=== PATIENT | male | born 1945 | race Caucasian/White ===

== ENCOUNTER → 2017-12-12 11:24 | Outpatient (CLI) | payer MEDICARE, BC, SELFPAY ==
--- NOTE | 2017-12-12 | DI.RAD.S_ITS ---
PROCEDURE: FL BARIUM SWALLOW W SPEECH INDICATIONS: DYSPHAGIA TECHNIQUE: Examination was conducted in conjunction with speech pathology per standard protocol. In the lateral projection, filming was performed of the patient swallowing. AP projection filming may also be performed with patient swallowing. COMPARISON: None. FINDINGS: Function: The oral preparatory phase appears normal, with proper containment. The subsequent oral propulsive phase, pharyngeal phase, and esophageal phase of swallowing also appear normal with all proffered substances except with thin liquids where overflow penetration from the puriform sinuses foreign into the glottic region was observed. No laryngotracheal penetration or aspiration. No pathologic vallecular pooling. Morphology: No cricopharyngeal bar is identified. No cervical esophageal webs. No Zenker's diverticulum. No strictures. IMPRESSION: Episodic overflow penetration anteriorly from the piriform sinuses into the glottic area was observed with thin liquids only, but without associated aspiration. Please also refer to the dedicated speech therapy report that will be independently generated from this examination. Dictated by: Ferny Hudson M.D. on 12/12/2017 at 13:01 Approved by: Ferny Hudson M.D. on 12/12/2017 at 13:03
--- NOTE | 2017-12-12 13:15 | ST.SWALLOW ---
Visit Care Team Role Provider Type Thierry Coyle MD Attending Provider Physician Family Provider Primary Care Provider Specialty: Internal Medicine Address: [address] [place] [address], [id number] Email: Modified Barium Swallow Study REIMBURSEMENT LIAISON Modified Barium Swallow Study Start: 12/12/17 12:09 Freq: Status: Active Protocol: Document 12/12/17 12:09 LWORSLE (Rec: 12/12/17 12:16 [email or web address] [id number]) Modified Barium Swallow Study Total Time Visit Start Time 11:30 Visit Stop Time 11:55 Total Visit Minutes 25 Visit Information Insurance Information Medicare/[place] Referral Referring Physician Dr. Coyle Reason for Referral Dysphagia Setting Setting Outpatient Care Patient Information Identification Type Name Patient History Chad has a long history of cough and throat clearing that worsens with swallowing liquids. His encouraged him to attend a swallow screening performed at the rehab clinic of the hospital, after which it was recommended that he undergo a modified barium swallow. Patient informed his physician, Dr. Coyle, who made the referral. Chad told this speech- language pathologist that it sometimes feels like water is going down the wrong way. He also reported that when he is riging his bike, he will take a drink form the water bottle while riding and frequently ends up choking on the water. Patient Positioning Position View Lateral Imaging Lateral View Textures Administered Trials Presented Thin Liquid via Spoon Thin Liquid via Cup [place] Liquid via Spoon [place] Liquid via Cup Pudding Thick Liquid via Spoon Regular Textures Oral Phase Source: MBSIMP (TM) (C) Bolus Specific Scoring Grid Lip Closure No Impairment (WNL) Tongue Control During Bolus Hold No Impairment (WNL) Bolus Prep/Mastication No Impairment (WNL) Bolus Transport/Lingual Motion No Impairment (WNL) A/P Lingual Propulsion Delay No Oral Residue No Impairment (WNL) Residue Clearing No Impairment (WNL) Nasal Regurgitation No Pharyngeal Phase Source: MBSIMP (TM) (C) Bolus Specific Scoring Grid Delayed Initiation of Pharyngeal Swallow No Soft Palate Elevation No Impairment (WNL) Tongue Base Strength/Range of Motion No Impairment (WNL) Residue Along the Tongue Base Yes Clearance of Residue Along Tongue Base WFL Laryngeal Elevation No Impairment (WNL) Anterior Hyoid Movement No Impairment (WNL) Epiglottic Range of Motion Moderate Impairment Vallecular Residue Yes Clearance of Vallecular Residue Minimal Impairment Laryngeal Vestibular Closure Moderate Impairment Pharyngeal Stripping Wave No Impairment (WNL) Pharyngeal Contraction No Impairment (WNL) Posterior Pharyngeal Wall Residue No Clearance of Posterior Pharyngeal Wall No Impairment (WNL) Residue Upper Esophageal Sphincter Opening No Impairment (WNL) Residue in the Pyriform Sinuses Yes Clearance of Residue in the Pyriform Moderate Impairment Sinuses Pharyngoesophageal Backflow Observed No Additional Pharyngeal Phase Observations The pt presented with pooling in the pharyngeal cavities across all trials. The pyriform sinuses would subsequently spill residue into the laryngeal vestibule resulting in throat-clearing. This was consistently present across all thin liquid trials . Aggressive throat-clearing was effective in clearing the residue from the vocal folds. Additionally there was evidence of barium residue on the superior 2/3 of the anterior wall of the thyroid cartilage A/P View Clinical Impressions Dysphagia Type Mild-Moderate pharyngeal phase dysphagia Findings Chad demonstrated penetration without aspiration with thin liquids. This penetration did not improve with a chin tuck. However, his swallow improved with an effortful swallow. He had some mild vallecular pooling. A moderate amount of residue was left in his pyriform sinuses, which was successfully cleared with throat clearing and an extra swallow. He had incomplete epiglottic closure with thin liquids, but it was improved with thicker substances ( nectar, pudding, and solids), likely due to the weight of the bolus pushing down on his epiglottis. This lack of complete laryngotracheal closure puts Chad at risk for penetration/aspiration of thin liquids. His oral phase was unremarkable and no esophageal dysfunction was observed from the limited view obtained during this study. Outpatient speech therapy is recommended for lingua- pharyngeal strengthening exercises to improve Chad' swallow efficiency and reduce risk for aspiration. Rehabilitation Potential Excellent Patient Appropriate for Therapy Yes Recommendations Diet Liquids Order Thin Diet Order Regular Medication Recommendation As Tolerated Additional Dietary Needs Controlled Sips Reminders to Use Strategies Aspiration Precautions Recommended Precautions Upright at 90 Degrees Effortful Swallow Double Swallow Treatment Plan Therapy Recommendations Outpatient Speech Therapy Base of Tongue Exercises Recommended Referrals Primary Care Physician Compensatory Strategies Recommendations Double Swallow Supraglottic Swallow Please Sign and Return: I have reviewed this Plan of Care and certify that the skilled therapy services above are required to meet the patient???s needs. Physician Signature Date Printed Name and Credentials Clinical Instructor Signature Printed Name and Credentials
== END ==
PROVIDERS: Family Provider Internal Medicine; PCP Internal Medicine; Visit Provider Internal Medicine
DX: R13.10 Dysphagia, unspecified (principal)
CPT/HCPCS: 74230; 92611

== ENCOUNTER → 2018-04-08 13:12 | Outpatient (CLI) | payer MEDICARE, BC, SELFPAY ==
[2018-04-08 15:04] LABS: Prostate Specific Antigen < 0.064 ng/mL (0.10-4.00)
== END ==
PROVIDERS: PCP Internal Medicine; Visit Provider Urology
DX: Z85.46 Personal history of malignant neoplasm of prostate (principal)
CPT/HCPCS: 36415; 84153

== ENCOUNTER 2018-06-17 11:30 | Outpatient (RCR) | payer MEDICARE, BC, SELFPAY ==
--- NOTE | 2018-07-10 16:27 | ST.SWALLOW ---
Care Team Visit Care Team Role Provider Type Thierry Coyle MD Attending Provider Physician Family Provider Primary Care Provider Specialty: Internal Medicine Address: [address] [place] [address], [id number] Email: Modified Barium Swallow Study HOSPITAL WELLNESS COORDINATOR Modified Barium Swallow Study Start: 07/10/18 10:23 Freq: Status: Active Protocol: Document 07/10/18 15:09 ARIANNA (Rec: 07/10/18 16:05 ARIANNA [id number]) Modified Barium Swallow Study Total Time Visit Start Time 09:45 Visit Stop Time 10:15 Total Visit Minutes [address] Sonny Coyle Reason for Referral Follow up assessment after course of dysphagia tx Setting Setting Outpatient Care Patient Information Identification Type Name ID Card Patient History 72-yr-old male who has been participating in dysphagia therapy since December 2017 presents for repeat instrumental evaluation of swallow to determine level of progress and guide POC. The pt underwent MBSS at start of dysphagia treatment (). Per HOSPITAL WELLNESS COORDINATOR report, the MBS results demonstrated penetration into the laryngeal vestibule without aspiration with thin liquids. This penetration did not improve with a chin tuck. However, his swallow improved with an effortful swallow. He had some mild vallecular pooling. A moderate amount of residue was left in his pyriform sinuses, which was successfully cleared with throat clearing and an extra swallow. He had incomplete epiglottic closure with thin liquids, but it was improved with thicker substances (nectar, pudding, and solids), likely due to the weight of the bolus pushing down on his epiglottis. This lack of complete laryngotracheal closure puts Chad at risk for penetration/ aspiration of thin liquids. His oral phase was unremarkable and no esophageal dysfunction was observed from the limited view obtained during this study. Chad had videostroboscopy assessment on 04/02/[address] Ghosh, ENT in [place]. The results indicated right and left vocal folds to be slightly rough as well as mild hypertrophy of the posterior commisure. The pt reports no changes in symptoms since start of treatment; symptoms include chronic cough which increases when in cold weather and occurs frequently with intake of solids and liquids. Subjective Observations The pt arrived on time and provided case history supplemental to medical records. Patient Positioning Position View Lat-A/P Imaging Lateral View Textures Administered Trials Presented Thin Liquid via Spoon Thin Liquid via Cup Thin Liquid via Straw Ashley Liquid via Spoon Ashley Liquid via Cup Honey Liquid via Spoon Dysphagia Blenderized Textures Regular Textures Barium Tablet Oral Phase Source: MBSIMP (TM) (C) Bolus Specific Scoring Grid Lip Closure No Impairment (WNL) Tongue Control During Bolus Hold No Impairment (WNL) Bolus Prep/Mastication No Impairment (WNL) Bolus Transport/Lingual Motion No Impairment (WNL) A/P Lingual Propulsion Delay No Oral Residue Moderate Impairment Residue Clearing WFL Nasal Regurgitation No Additional Oral Phase Observations Delayed swallow trigger observed with liquids in consecutive sips with spillage to pyriform sinuses. Spillage to vallecula noted with solids prior to swallow trigger. Mild-moderate oral residue observed consistently with spillage to vallecula post swallow. Two to three dry swallows were consistently required to clear residue and likely results from inadequate lingal-palatal seal during bolus transport. Pharyngeal Phase Source: MBSIMP (TM) (C) Bolus Specific Scoring Grid Delayed Initiation of Pharyngeal Swallow Yes Soft Palate Elevation No Impairment (WNL) Tongue Base Strength/Range of Motion Minimal Impairment Residue Along the Tongue Base Yes: Spills to pharynx post- swallow. Requires 1-2 dry swallows to clear. Clearance of Residue Along Tongue Base Mild Impairment Laryngeal Elevation No Impairment (WNL) Anterior Hyoid Movement No Impairment (WNL) Epiglottic Range of Motion No Impairment (WNL) Vallecular Residue Yes: Mild; Requires 1-2 dry swallows to clear. Clearance of Vallecular Residue Mild Impairment Laryngeal Vestibular Closure Minimal Impairment Pharyngeal Stripping Wave Mild Impairment Pharyngeal Contraction No Impairment (WNL) Posterior Pharyngeal Wall Residue Yes: Mild; Requires 1-2 dry swallows to clear. Clearance of Posterior Pharyngeal Wall Mild Impairment Residue Upper Esophageal Sphincter Opening No Impairment (WNL) Residue in the Pyriform Sinuses Yes: Moderate; Requires 1-2 dry swallows to clear. Clearance of Residue in the Pyriform Mild Impairment Sinuses Esophageal Clearance Upright Position No Impairment (WNL) Pharyngoesophageal Backflow Observed No Additional Pharyngeal Phase Observations Incomplete closure of laryngeal vestibule resulted in flash penetration (PAS Score 3) with thin and NTLs, improved with chin tuck. No aspiration was observed. Moderate pharyngeal residue present with liquids and solids, most significantly collected in pyriform sinuses. Two to three dry swallows were consistently required for adequate clearance of residue throughout the study. Residue resulting from reduced tongue base retraction and pharyngeal stripping wave. A/P View Textures Administered Trials Presented Ashley Liquid via Cup Barium Tablet A/P View Observations Pharyngeal Contraction No Impairment (WNL) Residue Observed Pyriform Sinus Right Pyriform Sinus Left Esophageal Function No Impairment (WNL) Esophageal Clearance Upright Position No Impairment (WNL) Clinical Impressions Dysphagia Type Mild oropharyngeal dysphagia Findings Pt exhibits improved swallow function as result of dysphagia treatment, specifically improved epiglottic inversion and closure of laryngeal vestibule . The pt continues with flash penetration of thin and NTLs, indicating ongoing incomplete laryngeal vestibule closure. Moderate oral and pharyngeal residue was observed with all trials and consistently required 1-2 dry swallows to clear. This residue increases the pt's risk of delayed penetration and/or aspiration of substances and may contribute to his frequent coughing, which may not be obviously associated to swallow function by lay persons. Prognosis for continued improvement with ongoing skilled intervention and aggressive HEP is good, based on progress made to date and the pt's history of compliance with HEP. Rehabilitation Potential Excellent Patient Appropriate for Therapy Yes Recommendations Diet Liquids Order Thin Diet Order Regular Medication Recommendation As Tolerated Aspiration Precautions Recommended Precautions Upright at 90 Degrees Chin Tuck Effortful Swallow Double Swallow Treatment Plan Therapy Recommendations Outpatient Speech Therapy Lingual Exercises Base of Tongue Exercises Compensatory Strategy Education Compensatory Strategies Recommendations Chin Tuck Mendelsonn Maneuver Short Term Goals 1. Pt will continue with outpatient dysphagia therapy targeting exercises to increase strength and coordination of swallow musculature (e.g., Brenda, Noah, back and base of tongue, lingual-palatal seal, effortful swallow). 2. Pt will use compensatory swallow strategies (chin tuck with liquids, double/triple swallow with solids and liquids) to decrease risk of aspiration. Kitchen Steward/Stewardess Goals 1. Pt will demonstrate consistent and independent compliance with HEP to improve function and maintain intervention benefits. 2. Pt will use compensatory swallow strategies independently as directed by outpatient HOSPITAL WELLNESS COORDINATOR. 3. Pt will tolerate regular diet texture and thin liquids without overt s/sx of aspiration. Placement Recommendation After Discharge Home Additional Recommendations/Comments Following MBS, the pt was educated regarding findings and recommendations, including compensatory strategies and addition of base of tongue exercise to his already established HEP. He verbalized understanding and informed that he will be out of state for 2 months, leaving in early July. It is highly recommended the pt follow up with at least one treatment session before leaving to review MBS results in more detail and fully develop HEP for the pt to follow during his absence. He was in agreement and stated he would do so, if schedules allowed. Initialized on 07/10/18 16:06 - END OF NOTE
== END 2018-06-18 11:41 ==
LOC: SP 11:30
PROVIDERS: Family Provider Internal Medicine; PCP Internal Medicine; Visit Provider Internal Medicine
DX: R13.13 Dysphagia, pharyngeal phase (principal)
CPT/HCPCS: 92507; 92526

== ENCOUNTER → 2018-07-10 09:24 | Outpatient (CLI) | payer MEDICARE, BC, SELFPAY ==
--- NOTE | 2018-07-10 | DI.RAD.S_ITS ---
PROCEDURE: FL BARIUM SWALLOW W SPEECH INDICATIONS: DYSPHAGIA TECHNIQUE: Examination was conducted in conjunction with speech pathology per standard protocol. In the lateral projection, filming was performed of the patient swallowing. AP projection filming may also be performed with patient swallowing. COMPARISON: [facility], , [place] BARIUM SWALLOW W SPEECH, 12/12/2017, 11:32. FINDINGS: Function: The oral preparatory phase appears normal, with proper containment. Laryngeal tracheal penetration is noted during swallowing of thin liquid and nectar. No penetration or aspiration is noted during the rest of the study No pathologic vallecular pooling. Morphology: No cricopharyngeal bar is identified. No cervical esophageal webs. No Zenker's diverticulum. No strictures. IMPRESSION: Penetration noted during swallowing of thin liquid and nectar which improved using chin tuck technique. No aspiration. Please refer to speech pathology notes. Dictated by: Placido Kaminski M.D. on 07/10/2018 at 12:03 Approved by: Placido Kaminski M.D. on 07/10/2018 at 12:06
--- NOTE | 2018-07-10 16:06 | ST.SWALLOW ---
Care Team Visit Care Team Role Provider Type Thierry Coyle MD Attending Provider Physician Primary Care Provider Specialty: Internal Medicine Address: [address] [place] [address], [id number] Email: Modified Barium Swallow Study FOLDER GLUER OPERATOR Modified Barium Swallow Study Start: 07/10/18 10:23 Freq: Status: Active Protocol: Document 07/10/18 15:09 ARIANNA (Rec: 07/10/18 16:05 ARIANNA [id number]) Modified Barium Swallow Study Total Time Visit Start Time 09:45 Visit Stop Time 10:15 Total Visit Minutes [address] Sonny Coyle Reason for Referral Follow up assessment after course of dysphagia tx Setting Setting Outpatient Care Patient Information Identification Type Name ID Card Patient History 72-yr-old male who has been participating in dysphagia therapy since December 2017 presents for repeat instrumental evaluation of swallow to determine level of progress and guide POC. The pt underwent MBSS at start of dysphagia treatment (). Per FOLDER GLUER OPERATOR report, the MBS results demonstrated penetration into the laryngeal vestibule without aspiration with thin liquids. This penetration did not improve with a chin tuck. However, his swallow improved with an effortful swallow. He had some mild vallecular pooling. A moderate amount of residue was left in his pyriform sinuses, which was successfully cleared with throat clearing and an extra swallow. He had incomplete epiglottic closure with thin liquids, but it was improved with thicker substances (nectar, pudding, and solids), likely due to the weight of the bolus pushing down on his epiglottis. This lack of complete laryngotracheal closure puts Chad at risk for penetration/ aspiration of thin liquids. His oral phase was unremarkable and no esophageal dysfunction was observed from the limited view obtained during this study. Chad had videostroboscopy assessment on 04/02/[address] Ghosh, ENT in [place]. The results indicated right and left vocal folds to be slightly rough as well as mild hypertrophy of the posterior commisure. The pt reports no changes in symptoms since start of treatment; symptoms include chronic cough which increases when in cold weather and occurs frequently with intake of solids and liquids. Subjective Observations The pt arrived on time and provided case history supplemental to medical records. Patient Positioning Position View Lat-A/P Imaging Lateral View Textures Administered Trials Presented Thin Liquid via Spoon Thin Liquid via Cup Thin Liquid via Straw [place] Liquid via Spoon [place] Liquid via Cup [place] Liquid via Spoon Dysphagia Blenderized Textures Regular Textures Barium Tablet Oral Phase Source: MBSIMP (TM) (C) Bolus Specific Scoring Grid Lip Closure No Impairment (WNL) Tongue Control During Bolus Hold No Impairment (WNL) Bolus Prep/Mastication No Impairment (WNL) Bolus Transport/Lingual Motion No Impairment (WNL) A/P Lingual Propulsion Delay No Oral Residue Moderate Impairment Residue Clearing WFL Nasal Regurgitation No Additional Oral Phase Observations Delayed swallow trigger observed with liquids in consecutive sips with spillage to pyriform sinuses. Spillage to vallecula noted with solids prior to swallow trigger. Mild-moderate oral residue observed consistently with spillage to vallecula post swallow. Two to three dry swallows were consistently required to clear residue and likely results from inadequate lingal-palatal seal during bolus transport. Pharyngeal Phase Source: MBSIMP (TM) (C) Bolus Specific Scoring Grid Delayed Initiation of Pharyngeal Swallow Yes Soft Palate Elevation No Impairment (WNL) Tongue Base Strength/Range of Motion Minimal Impairment Residue Along the Tongue Base Yes: Spills to pharynx post- swallow. Requires 1-2 dry swallows to clear. Clearance of Residue Along Tongue Base Mild Impairment Laryngeal Elevation No Impairment (WNL) Anterior Hyoid Movement No Impairment (WNL) Epiglottic Range of Motion No Impairment (WNL) Vallecular Residue Yes: Mild; Requires 1-2 dry swallows to clear. Clearance of Vallecular Residue Mild Impairment Laryngeal Vestibular Closure Minimal Impairment Pharyngeal Stripping Wave Mild Impairment Pharyngeal Contraction No Impairment (WNL) Posterior Pharyngeal Wall Residue Yes: Mild; Requires 1-2 dry swallows to clear. Clearance of Posterior Pharyngeal Wall Mild Impairment Residue Upper Esophageal Sphincter Opening No Impairment (WNL) Residue in the Pyriform Sinuses Yes: Moderate; Requires 1-2 dry swallows to clear. Clearance of Residue in the Pyriform Mild Impairment Sinuses Esophageal Clearance Upright Position No Impairment (WNL) Pharyngoesophageal Backflow Observed No Additional Pharyngeal Phase Observations Incomplete closure of laryngeal vestibule resulted in flash penetration (PAS Score 3) with thin and NTLs, improved with chin tuck. No aspiration was observed. Moderate pharyngeal residue present with liquids and solids, most significantly collected in pyriform sinuses. Two to three dry swallows were consistently required for adequate clearance of residue throughout the study. Residue resulting from reduced tongue base retraction and pharyngeal stripping wave. A/P View Textures Administered Trials Presented [place] Liquid via Cup Barium Tablet A/P View Observations Pharyngeal Contraction No Impairment (WNL) Residue Observed Pyriform Sinus Right Pyriform Sinus Left Esophageal Function No Impairment (WNL) Esophageal Clearance Upright Position No Impairment (WNL) Clinical Impressions Dysphagia Type Mild oropharyngeal dysphagia Findings Pt exhibits improved swallow function as result of dysphagia treatment, specifically improved epiglottic inversion and closure of laryngeal vestibule . The pt continues with flash penetration of thin and NTLs, indicating ongoing incomplete laryngeal vestibule closure. Moderate oral and pharyngeal residue was observed with all trials and consistently required 1-2 dry swallows to clear. This residue increases the pt's risk of delayed penetration and/or aspiration of substances and may contribute to his frequent coughing, which may not be obviously associated to swallow function by lay persons. Prognosis for continued improvement with ongoing skilled intervention and aggressive HEP is good, based on progress made to date and the pt's history of compliance with HEP. Rehabilitation Potential Excellent Patient Appropriate for Therapy Yes Recommendations Diet Liquids Order Thin Diet Order Regular Medication Recommendation As Tolerated Aspiration Precautions Recommended Precautions Upright at 90 Degrees Chin Tuck Effortful Swallow Double Swallow Treatment Plan Therapy Recommendations Outpatient Speech Therapy Lingual Exercises Base of Tongue Exercises Compensatory Strategy Education Compensatory Strategies Recommendations Chin Tuck Mendelsonn Maneuver Short Term Goals 1. Pt will continue with outpatient dysphagia therapy targeting exercises to increase strength and coordination of swallow musculature (e.g., Brenda, Noah, back and base of tongue, lingual-palatal seal, effortful swallow). 2. Pt will use compensatory swallow strategies (chin tuck with liquids, double/triple swallow with solids and liquids) to decrease risk of aspiration. Ethyl Blender Goals 1. Pt will demonstrate consistent and independent compliance with HEP to improve function and maintain intervention benefits. 2. Pt will use compensatory swallow strategies independently as directed by outpatient FOLDER GLUER OPERATOR. 3. Pt will tolerate regular diet texture and thin liquids without overt s/sx of aspiration. Placement Recommendation After Discharge Home Additional Recommendations/Comments Following MBS, the pt was educated regarding findings and recommendations, including compensatory strategies and addition of base of tongue exercise to his already established HEP. He verbalized understanding and informed that he will be out of state for 2 months, leaving in early July. It is highly recommended the pt follow up with at least one treatment session before leaving to review MBS results in more detail and fully develop HEP for the pt to follow during his absence. He was in agreement and stated he would do so, if schedules allowed.
== END ==
PROVIDERS: PCP Internal Medicine; Visit Provider Internal Medicine
DX: R13.10 Dysphagia, unspecified (principal)
CPT/HCPCS: 74230; 92611

== ENCOUNTER → 2019-03-25 11:39 | Outpatient (CLI) | payer MEDICARE, BC, SELFPAY ==
--- NOTE | 2019-03-25 | DI.RAD.S_ITS ---
PROCEDURE: XR HIP W PEL IF DONE LT 2V INDICATIONS: LT hip pain, chronic TECHNIQUE: AP pelvis with lateral view(s) of the left hip(s). COMPARISON: None. FINDINGS: Bones: No fractures or dislocations. Pelvic ring appears intact. No suspicious bony lesions. Soft tissues: The visualized bowel gas pattern is normal. No suspicious soft tissue calcifications. IMPRESSION: There is symmetric mild hip joint osteoarthritis bilaterally, no fracture or traumatic subluxation suspected. Dictated by: Fenry Hudson M.D. on 03/25/2019 at 14:02 Approved by: Ferny Hudson M.D. on 03/25/2019 at 14:03
== END ==
PROVIDERS: Family Provider Orthopaedic Surgery; PCP Internal Medicine; Visit Provider Nurse Practitioner Family
DX: M25.552 Pain in left hip (principal); M16.0 Bilateral primary osteoarthritis of hip; G89.29 Other chronic pain
CPT/HCPCS: 73502

== ENCOUNTER 2019-06-27 13:59 | Day surgery (SDC) | payer MEDICARE, BC, SELFPAY ==
[2019-06-27] VITALS (7 sets, daily range): BP systolic 118–149; BP diastolic 79–90; PULSE 65–82; RESP 13–17; TEMP 36.1–37.1; O2SAT 97–100; BMI 26.2
--- NOTE | 2019-06-27 | PATH_ITS ---
[facility] Accession Number: [id number] . 01 Material submitted: . PART A: duodenum - DUODENUM BIOPSY PART B: gastrointestinal site - FUNDUS BIOPSY PART C: gastrointestinal site - ANTRUM PART D: gastrointestinal site - BODY PART E: esophagus, E-G Junction - GE JUNCTION 12 O'CLOCK PART F: esophagus, E-G Junction - GE JUNCTION 6 O'CLOCK PART G: hernia - HIATAL HERNIA PART H: colon - RANDOM COLON BIOPSY . 01 Clinical history: . COLONOSCOPY / EGD . 02 Diagnosis: A. Duodenum, Biopsy: Duodenal mucosa with no diagnostic abnormality. Negative for active inflammation, features of sprue, dysplasia, or malignancy. . B. Fundus, Biopsy: Gastric body-type mucosa with no diagnostic abnormality. Negative for Helicobacter organisms by immunohistochemistry. Negative for intestinal metaplasia. Negative for dysplasia and malignancy. . C. Antrum, Biopsy: Gastric antral and body-type mucosa with no diagnostic abnormality. Negative for Helicobacter organisms by immunohistochemistry. Negative for intestinal metaplasia. Negative for dysplasia and malignancy. . D. Body, Biopsy: Gastric body-type mucosa with no diagnostic abnormality. Negative for Helicobacter organisms by immunohistochemistry. Negative for intestinal metaplasia. Negative for dysplasia and malignancy. . E. GE Junction at 12 o'clock: Squamous epithelium with no diagnostic abnormality. Intraepithelial eosinophils are not increased. Negative for dysplasia and malignancy. . F. GE Junction at 6 o'clock: Squamous epithelium with no diagnostic abnormality. Intraepithelial eosinophils are not increased. Negative for dysplasia and malignancy. . G. Hiatal Hernia: Squamous epithelium with no diagnostic abnormality. Intraepithelial eosinophils are not increased. Negative for dysplasia and malignancy. . H. Random Colon Biopsy: Colonic mucosa with no diagnostic abnormality. Negative for active, chronic, and microscopic colitis. Negative for dysplasia and malignancy. [facility] 07/01/2019 1518 Local . 02 Electronically signed: . Linette Godinez MD, Pathologist NPI- [id number] . 01 Gross description: . Part A: DUODENUM BIOPSY: Received in formalin are 2 fragment(s) of wisdom, soft tissue measuring 0.2 x 0.2 x 0.2 cm to 0.1 x 0.1 x 0.1 cm submitted entirely in 1 cassette(s) Part B: FUNDUS BIOPSY: Received in formalin is 1 fragment(s) of wisdom, soft tissue measuring 0.3 x 0.2 x 0.2 cm submitted entirely in 1 cassette(s) Part C: ANTRUM: Received in formalin are 2 fragment(s) of wisdom, soft tissue measuring 0.3 x 0.2 x 0.1 cm to 0.2 x 0.1 x 0.1 cm submitted entirely in 1 cassette(s) Part D: BODY: Received in formalin are 2 fragment(s) of wisdom, soft tissue measuring 0.3 x 0.3 x 0.2 cm to 0.2 x 0.2 x 0.1 cm submitted entirely in 1 cassette(s) Part E: GE JUNCTION 12 O'CLOCK: Received in formalin is 1 fragment(s) of wisdom, soft tissue measuring 0.3 x 0.2 x 0.1 cm submitted entirely in 1 cassette(s) Part F: GE JUNCTION 6 O'CLOCK: Received in formalin is 1 fragment(s) of wisdom, soft tissue measuring 0.3 x 0.2 x 0.1 cm submitted entirely in 1 cassette(s) Part G: HIATAL HERNIA: Received in formalin is 1 fragment(s) of wisdom, soft tissue measuring 0.3 x 0.3 x 0.1 cm submitted entirely in 1 cassette(s) Part H: RANDOM COLON BIOPSY: Received in formalin are 4 fragment(s) of wisdom, soft tissue measuring 0.7 x 0.2 x 0.1 cm to 0.3 x 0.2 x 0.1 cm submitted entirely in 1 cassette(s) /[facility] 06/28/2019 0720 Local . 02 Microscopic: . B, C, D. Immunohistochemical stains were performed to evaluate for Helicobacter organisms and are negative. The control stain showed appropriate reactivity. . * This test was developed and its performance characteristics determined by [facility]. It has not been cleared or approved by the U.S. Food and Drug Administration. The FDA has determined that such clearance or approval is not necessary. This test is used for clinical purposes. It should not be regarded as investigational or for research. . 02 Pathologist provided ICD-10: R10.13, R19.7, K21.9, K27.7, Z86.010 . 02 CPT . 099440, 353992, 200330, 220267, 945358, 270539, [id number], 503730, [id number] Performed at: 01 [facility] [address] [place] [id number] MD Luis Nicole MD Phone: [phone] Performed at: 02 [facility] [address] [place] [id number] MD Fatimah Oliveros MD Phone: [phone]
--- NOTE | 2019-06-27 08:05 | PM.PREOP ---
Pre-operative Note Interval Note History & Physical reviewed/Exam performed by Physician: Yes Changes to H&P: No ASA Class (for procedural sedation): II
--- NOTE | 2019-06-27 08:05 | PM.OP.ENDO ---
Operative Date/Time/Diagnoses Date of procedure: 06/27/19 Time of procedure: 15:18 Pre-op diagnosis: 1. Abdominal pain, epigastric 2. GERD 3. Chronic peptic ulcer disease Post-op diagnosis: same ( 1. large hiatal hernia, 2. chronic peptic ulcer disease, 3. Irregular Z-line) Procedure & Clinicians Study performed: EGD Same procedure as scheduled: Yes Indications: 1. Abdominal pain, epigastric 2. GERD 3. Chronic peptic ulcer disease Surgeon: Gillian Camp Procedure Notes SCOAP/Timeout: 15:16 Procedure in detail: ENDOSCOPIST: Gillian Camp MD Sedation RN: Evy Alvarez RN Sedation start time: 15:20 Sedation end time: 15:30 PROCEDURE: EGD with biopsy INDICATIONS: 1. Epigastric abdominal pain 2. GERD 3. Peptic ulcer disease, chronic MEDICATION: Incremental doses of Versed and fentanyl until an appropriate level of sedation was achieved. ASA Ratin DURATION OF PROCEDURE: 10 minutes. COMPLICATIONS: None. LIMITATIONS: None EXTENT OF PROCEDURE: Third portion of the Duodenum. PROCEDURE: The high-definition gastroduodenoscope was introduced into the posterior oropharynx under direct vision after Hurricaine spray, noted IV sedation, and proper informed consent. The esophagus was identified and intubated under direct visualization. The scope was quickly passed through the esophagus and into the fundus of the stomach. A clear fundal pool was aspirated. The scope was then advanced to the antrum and the pylorus was identified. The scope was passed through the pylorus into the second and third portions of the duodenum. Random biopsy taken x2. No abnormalities were noted in the duodenum, duodenal bulb or pyloric channel. The antrum was unremarkable, random biopsy taken x2. J maneuver was produced. No abnormalities were noted of the proximal body, fundus or cardia, random biopsy taken x2. A large hiatal hernia was noted. Scope was broken out of the J maneuver and the remainder of the stomach was carefully inspected upon withdrawal and chronic gastritis was seen as well as fundic gland polyps. Random biopsy taken x2. The stomach was carefully deflated of all air on withdrawal. The distal esophagus was carefully inspected and Z-line was noted to be irregular, targeted biopsies of the GE junction were taken at 12 and 6 o'clock. The remainder of the esophagus was normal upon withdrawal. The larynx and vocal cords appeared to be unremarkable. IMPRESSION: 1. Chronic peptic ulcer disease 2. Large hiatal hernia 3. Irregular Z-line PLAN: 1. Follow-up in clinic status post pathology results. The possibility of missed lesion including a malignancy was discussed prior with the patient. Potential alarm symptoms have been discussed and should be reported by the patient immediately. Scope withdrawal time: 10 Sedation minutes: 10 Findings: hiatal hernia Specimen(s): none sent Complications: none Impression: As above Post-procedure Recommendations: Will call with biopsy results Follow up: weeks (2) Disposition: PACU
--- NOTE | 2019-06-27 08:08 | PM.OP.ENDO ---
Operative Date/Time/Diagnoses Date of procedure: 06/27/19 Time of procedure: 15:35 Pre-op diagnosis: 1. Epigastric abdominal pain 2. Diarrhea 3. History of colon polyps 4. Screening for colon cancer Post-op diagnosis: same ( 1. Severe diverticulosis, left-sided) Procedure & Clinicians Study performed: Colonoscopy Same procedure as scheduled: Yes Indications: 1. Epigastric abdominal pain 2. Diarrhea 3. History of colon polyps 4. Screening for colon cancer Surgeon: Gillian Camp Procedure Notes SCOAP/Timeout: 15:18 Procedure in detail: ENDOSCOPIST: Gillian Camp MD Sedation RN: Evy Bowling RN Sedation start time: 15:35 Sedation end time: 16:18 PROCEDURE: Colonoscopy with biopsies INDICATIONS: 1. Epigastric abdominal pain 2. Diarrhea 3. History of colon polyps 4. Screening for colon cancer MEDICATION: Levsin 0.125 mg sublingual, incremental doses of Versed and fentanyl until appropriate level sedation achieved. ASA CLASS: 2 CECAL WITHDRAWAL TIME: 19 COMPLICATIONS: None. EXTENT OF PROCEDURE: Cecum. QUALITY OF PREP: Good with portions of liquid stool. PROCEDURE: Prior to insertion of the colonoscope, a digital rectal examination was accomplished with circumferential palpation of the distal rectal mucosa without significant findings being noted. The high-definition colonoscope was passed into the rectum in the usual fashion and advanced over to the cecum with some difficulty due to severe diverticulosis. The ileocecal valve, appendiceal stoma, and medial wall all could be inspected and no abnormalities were seen. Random biopsies taken throughout withdrawal. ASCENDING COLON: As the colonoscope was withdrawn, care was taken to expose and inspect the haustral folds and no abnormalities were seen. HEPATIC FLEXURE: Normal no polyps, diverticula or other abnormalities. TRANSVERSE COLON: Normal no polyps, diverticula or other abnormalities. DESCENDING COLON: Severe diverticulosis, otherwise, no polyps or other abnormalities. SIGMOID COLON: Severe diverticulosis, otherwise, no polyps or other abnormalities. RECTUM: Normal. J maneuver was produced. There was no significant perianal disease. The J maneuver was broken. The remainder of the rectum was inspected and there was no external hemorrhoid disease. The scope was withdrawn. IMPRESSION: 1. Severe diverticulosis, left-sided PLAN: 1. Follow-up in clinic status post pathology results The possibility of a missed lesion including a malignancy has been discussed with the patient previously. Potential alarm symptoms have been discussed and should be reported immediately. Scope withdrawal time: 19 Sedation minutes: 43 Findings: diverticulosis Specimen(s): other ( random) Complications: none Impression: as above Post-procedure Recommendations: Will call with biopsy results Follow up: weeks (2) Disposition: PACU
[2019-06-27] MEDS: SODIUM CHLORIDE 0.9% 1,000 ML 200 ML IV (14:31)
[2019-06-27] MEDS: HYOSCYAMINE 0.125 MG TABLET PO (14:34)
[2019-06-27] MEDS: MIDAZOLAM 5 MG/5 ML VIAL IV (15:21)
[2019-06-27] MEDS: fentaNYL 250 MCG/5 ML INJ IV (15:21)
[2019-06-27] MEDS: LIDOCAINE 4% SOLN 50 ML 20 ML TOP (15:22)
== END 2019-06-27 17:18 | disposition home or self-care (01) ==
PROVIDERS: PCP Nurse Practitioner Family; Visit Provider Student in an Organized Health Care Education/Training Program
PROC: 0DJ08ZZ Inspection of Upper Intestinal Tract, Via Natural or Artificial Opening Endoscopic (ICD-10-PCS; CPT 43235; 2019-06-27 15:00)
PROC: 0DJD8ZZ Inspection of Lower Intestinal Tract, Via Natural or Artificial Opening Endoscopic (ICD-10-PCS; CPT 45378; 2019-06-27 15:00)
DX: K57.30 Diverticulosis of large intestine without perforation or abscess without bleeding (principal); R19.7 Diarrhea, unspecified; K27.7 Chronic peptic ulcer, site unspecified, without hemorrhage or perforation; K21.9 Gastro-esophageal reflux disease without esophagitis; Z86.010 Personal history of colon polyps; K44.9 Diaphragmatic hernia without obstruction or gangrene
CPT/HCPCS: 45380; 43239; J2250; J3010

== ENCOUNTER → 2019-07-01 13:41 | Outpatient (CLI) | payer MEDICARE, BC, SELFPAY ==
[2019-07-01 15:30] LABS: Prostate Specific Antigen < 0.064 ng/mL (0.10-4.00)
== END ==
PROVIDERS: PCP Student in an Organized Health Care Education/Training Program; Visit Provider Urology
DX: Z85.46 Personal history of malignant neoplasm of prostate (principal)
CPT/HCPCS: 36415; 84153

== ENCOUNTER → 2020-07-22 13:33 | Outpatient (CLI) | payer MEDICARE, BC, SELFPAY ==
[2020-07-22 16:34] LABS: Prostate Specific Antigen < 0.064 ng/mL (0.10-4.00)
== END ==
PROVIDERS: PCP Student in an Organized Health Care Education/Training Program; Referring Provider Urology; Visit Provider Urology
DX: Z85.46 Personal history of malignant neoplasm of prostate (principal)
CPT/HCPCS: 36415; 84153

== ENCOUNTER → 2023-09-11 16:22 | Outpatient (ROUT) | payer MEDICARE, BC, SELFPAY ==
[2023-09-11 18:02] LABS: Influenza A - CEPHEID Flu A POSITIVE (NEGATIVE); Influenza B - CEPHEID Flu B NEGATIVE (NEGATIVE); Respiratory Syncytial Virus Negative (Negative)
[2023-09-11 18:07] LABS: COVID-19 CEPHEID 4-PLEX PCR Negative (Negative)
== END ==
PROVIDERS: PCP Student in an Organized Health Care Education/Training Program; Visit Provider Internal Medicine
DX: R05.1 Acute cough (principal)
CPT/HCPCS: 0241U

== ENCOUNTER → 2024-03-27 18:06 | Outpatient (CLI) | payer MEDICARE, BC, SELFPAY ==
--- NOTE | 2024-03-27 18:14 | DI.RAD.S_ITS ---
PROCEDURE: XR TOE RT MIN 2V INDICATIONS: Right 4th toe injury TECHNIQUE: Three views of the right 4th toe(s) acquired. COMPARISON: None. FINDINGS: Bones: Mildly displaced, mainly transverse fracture across the 4th proximal phalanx base without extension to the articular surface proximally. There is minor lateral angulation the distal fracture fragment. No other fractures are seen. No dislocation. Soft tissues: No suspicious soft tissue densities. IMPRESSION: Fourth proximal phalanx fracture with mild angulation displacement. Dictated by: Clarisse Saunders M.D. on 03/27/2024 at 22:19 Approved by: Clarisse Saunders M.D. on 03/27/2024 at 22:20
== END ==
PROVIDERS: PCP Student in an Organized Health Care Education/Training Program; Referring Provider Physician Assistant Medical; Visit Provider Physician Assistant Medical
DX: S92.501A Displaced unspecified fracture of right lesser toe(s), initial encounter for closed fracture (principal); M79.676 Pain in unspecified toe(s)
CPT/HCPCS: 73660

== ENCOUNTER → 2024-08-16 09:15 | Outpatient (CLI) | payer MEDICARE, BC, SELFPAY ==
--- NOTE | 2024-08-16 | DI.MRI.S_ITS ---
PROCEDURE: MR LUMBAR SPINE WO CON INDICATIONS: LUMBAR BACK PAIN TECHNIQUE: Noncontrast sagittal T1 spin echo and T2 fast echo, sagittal STIR, and T2 fast spin echo through the lumbar spine. In cases with scoliosis, additional coronal T2 fast spin echo may be performed. COMPARISON: None. FINDINGS: Image quality: Excellent. Alignment and Curvature: Grade 1 retrolisthesis of L1 on L2. Grade 1 anterolisthesis of L3 on L4. Bone Marrow: Marrow is of normal overall signal. No acute vertebral body compression fractures. Spinal Cord: Conus medullaris terminates at the L1 level. Visualized cord demonstrates normal signal and size. Paraspinous Soft Tissues: No paravertebral masses. T12-L1: Moderate disc height loss. Mild facet hypertrophy. L1-L2: Disc osteophyte complex, mild ligamentum flavum hypertrophy, facet hypertrophy and effusions, right greater than left. Mild bilateral neural foraminal narrowing. Mild spinal canal narrowing. L2-L3: Broad-based disc bulge, ligamentum flavum hypertrophy, facet hypertrophy, left facet effusion. Moderate left and mild right neural foraminal narrowing L3-L4: Broad-based disc bulge, facet hypertrophy, ligamentum flavum hypertrophy causing severe spinal canal narrowing and [id number] bilateral neural foraminal narrowing. L4-L5: Broad-based disc bulge, facet hypertrophy, ligamentum flavum hypertrophy. [id number]-[id number] bilateral neural foraminal narrowing. L5-S1: Very mild broad-based disc bulge, facet hypertrophy, moderate right neural foraminal narrowing. IMPRESSION: Moderate, multilevel degenerative disc disease and diffuse facet arthrosis. Of note: Severe spinal canal narrowing at L3-4, due to a combination of degenerative disc disease and anterolisthesis. Mild to moderate, multilevel neural foraminal narrowing. Dictated by: Lon Cruz M.D. on 08/18/2024 at 11:05 Approved by: Lon Cruz M.D. on 08/18/2024 at 11:13
== END ==
PROVIDERS: PCP Family Medicine; Referring Provider Family Medicine; Visit Provider Family Medicine
DX: M51.369 Other intervertebral disc degeneration, lumbar region without mention of lumbar back pain or lower extremity pain (principal); M48.061 Spinal stenosis, lumbar region without neurogenic claudication; M51.379 Other intervertebral disc degeneration, lumbosacral region without mention of lumbar back pain or lower extremity pain; M48.07 Spinal stenosis, lumbosacral region; M43.16 Spondylolisthesis, lumbar region; M47.816 Spondylosis without myelopathy or radiculopathy, lumbar region; M54.50 Low back pain, unspecified
CPT/HCPCS: 72148

== ENCOUNTER → 2024-08-22 15:33 | Outpatient (CLI) | payer MEDICARE, BC, SELFPAY ==
--- NOTE | 2024-08-22 15:35 | DI.RAD.S_ITS ---
PROCEDURE: XR HIP W PEL IF DONE GAMAL MIN 4V INDICATIONS: HIP PAIN TECHNIQUE: AP pelvis with lateral view(s) of the bilateral hip(s). COMPARISON: [facility], CR, XR HIP W PEL IF DONE LT 2V, 03/25/2019, 11:46. FINDINGS: Bones: No fractures or dislocations. [id number] bilateral hip joint degeneration with joint space narrowing and marginal spurring. Pelvic ring appears intact. No suspicious bony lesions. Degenerative changes of the visualized lower lumbar spine and pubic symphysis. Soft tissues: The visualized bowel gas pattern is normal. No suspicious soft tissue calcifications. Surgical clips projecting over the pelvis. IMPRESSION: No acute osseous abnormalities. Mild to moderate bilateral hip joint degeneration. Dictated by: Jean Paul Marshall M.D. on 08/22/2024 at 21:59 Approved by: Jean Paul Marshall M.D. on 08/22/2024 at 22:00
== END ==
PROVIDERS: PCP Family Medicine; Referring Provider Family Medicine; Visit Provider Family Medicine
DX: M25.551 Pain in right hip (principal); M25.552 Pain in left hip; M16.0 Bilateral primary osteoarthritis of hip
CPT/HCPCS: 73522

== ENCOUNTER → 2025-01-14 11:05 | Outpatient (CLI) | payer MEDICARE, BC, SELFPAY ==
[2025-01-14 11:39] LABS: Hematocrit 41.4 % (41-53); Hemoglobin 13.8 g/dL (13.5-17.5); Mean Corpuscular HGB Conc 33.3 % (30-36); Mean Corpuscular Hemoglobin 31.9 PG (26-34); Mean Corpuscular Volume 95.8 fL (80-100); Platelet Count 231 X10^3/uL (150-400); Red Blood Cell Count 4.32 X10^6/uL (4.5-5.9); White Blood Cell Count 5.9 X10^3/uL (4.5-11.0)
== END ==
PROVIDERS: PCP Family Medicine; Referring Provider Orthopaedic Surgery; Visit Provider Orthopaedic Surgery
DX: K21.9 Gastro-esophageal reflux disease without esophagitis (principal); M48.062 Spinal stenosis, lumbar region with neurogenic claudication
CPT/HCPCS: 36415; 85027

== ENCOUNTER → 2025-02-18 14:10 | Outpatient (CLI) | payer MEDICARE, BC, SELFPAY ==
--- NOTE | 2025-02-18 14:12 | DI.CT.S_ITS ---
PROCEDURE: CT LUMBAR SPINE WO CON INDICATIONS: Lumbar Stenosis TECHNIQUE: Noncontrast 3 mm thick sections acquired from the T12 level to the sacrum. Sagittal and coronal reformats were constructed. For radiation dose reduction, the following was used: automated exposure control. COMPARISON: [facility], MR, MR LUMBAR SPINE WO CON, 08/16/2024, 9:28. [facility], CR, XR LUMBAR SPINE WITH FLEXION EXTENSION 5 VIEWS, 01/06/2025, 13:13. FINDINGS: Image quality: Excellent. Bones: No acute vertebral body compression fractures. No suspicious lytic or blastic bony lesions. No pars defects. This patient has transitional lumbar anatomy. For the purposes of this examination, the level with the last well-developed pair of ribs is considered to be T11, with the level with the tiny vestigial ribs considered to be T12. By this numbering scheme, the L5 level is transitional and is sacralized on the left. Mild levoconvex scoliotic curvature is noted. Minimal retrolisthesis can be seen at L1-L2 and L2-L3. Grade 1 anterolisthesis is seen at the L3-L4 level. No associated pars defects are seen. Several levels of hypertrophied spinous prostheses can be seen, with pseudoarticulation. T12-L1: The disc height is well preserved. Vacuum disc phenomenon is seen at this level. Mild generalized disc bulge is seen. No neural foraminal narrowing or central canal narrowing can be seen. L1-L2: At least moderate loss of disc height is seen. Endplate irregularity and sclerosis can be seen. Vacuum disc phenomenon is seen at this level. Moderate generalized disc bulge is seen. There is a superimposed central disc osteophyte protrusion. Mild facet joint hypertrophy is seen. There is [id number] right-sided and moderate left-sided neural foraminal narrowing. Moderate central canal narrowing is seen. L2-L3: Moderate loss of disc height is seen. Endplate irregularity and sclerosis can be seen. Vacuum disc phenomenon is seen at this level. Moderate generalized disc bulge is seen. There is a superimposed central disc osteophyte protrusion. Moderate facet joint hypertrophy is seen. There is [id number] right-sided and mild left-sided neural foraminal narrowing. Moderate central canal narrowing is seen. L3-L4: Mild loss of disc height is seen. Mild to moderate disc bulge is seen, which is eccentric to the right. There is a superimposed central disc osteophyte protrusion. At least moderate facet hypertrophy is seen. Associated hypertrophy of the ligamentum flavum can be seen. There is at least moderate bilateral neural foraminal narrowing, right worse than left. Moderate to severe central canal narrowing can be seen. L4-L5: At least moderate loss of disc height is seen. Endplate irregularity and sclerosis can be seen. Vacuum disc phenomenon is seen at this level. At least moderate disc osteophyte complex is seen. There is a superimposed central disc osteophyte protrusion. Mild to moderate facet hypertrophy can be seen. There is at least moderate bilateral neural foraminal narrowing. Moderate central canal narrowing is seen. L5-S1: There is a transitional disc at this level. Mild loss of disc height is seen. There is at least moderate left-sided and no significant left-sided neural foraminal narrowing. No significant central canal narrowing can be seen. Soft tissues: No retroperitoneal masses or hematomas. Visualized aorta is normal in caliber. Atherosclerotic calcification is noted. Colonic diverticulosis is seen, without findings of active diverticulitis. IMPRESSION: Multiple levels of significant lumbar spine degenerative change can be seen, which are overall worst at the L3-L4 level. 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 Additional findings: Diverticulosis, without active diverticulitis Dictated by: Arden Moreno M.D. on 02/18/2025 at 14:29 Approved by: Arden Moreno M.D. on 02/18/2025 at 14:36
== END ==
LOC: CT 14:11
PROVIDERS: PCP Family Medicine; Referring Provider Family Medicine; Visit Provider Family Medicine
DX: M43.16 Spondylolisthesis, lumbar region (principal); M48.062 Spinal stenosis, lumbar region with neurogenic claudication; M54.50 Low back pain, unspecified; M51.35 Other intervertebral disc degeneration, thoracolumbar region; M51.369 Other intervertebral disc degeneration, lumbar region without mention of lumbar back pain or lower extremity pain; M48.061 Spinal stenosis, lumbar region without neurogenic claudication; M25.78 Osteophyte, vertebrae; M47.816 Spondylosis without myelopathy or radiculopathy, lumbar region; M48.07 Spinal stenosis, lumbosacral region
CPT/HCPCS: 72131